=== PATIENT | male | born 1950 | race Caucasian/White ===

== ENCOUNTER → 2017-03-17 | Day surgery (SDC) | payer BC, MEDICARE ==
[~2017-03-17] VITALS: Ht 193 cm; Wt 95.3 kg
[~2017-03-17] MED LIST: ALBU2.5V5 NEB; BACITRACIN 50,000 UNIT in IV NORMAL SALINE 1000ML BAG 1,000 ML IRR ONE; BUPIVACAINE-EPI 0.5%-1:200000 50 ML VIAL. ONE; BUPR1FIL5 SL; CELE200C PO; CYCL10TA2 PO; FLUT1DIS5 IH; GELATIN SPONGE SIZE 100. ONE; GUAI600T47 PO; HYDROmorphone 2 MG/ML VIAL IV PRN; IV RINGERS,LACTATED 1000ML 1,000 ML IV SCH; LIDOCAINE 1% 1 ML SYRINGE. ID PRN; LORA10TA68 PO; MORPHINE SULFATE 2 MG/ML DISP.SYRIN. IV PRN; OMEP20TA63 PO; ONDANSETRON PF 4 MG/2 ML VIAL. IV PRN; PRED2.5T PO; PREG200C PO; PROCHLORPERAZINE 10 MG/2 ML VIAL. IV PRN; THROMBIN TOPICAL 20,000 UNIT SPRAY.SYRN KIT TP ONE; TIOT18CA IH; VENTOLIN HFA18 GM INH; fentaNYL PF VIAL 100 MCG/2 ML VIAL IV PRN
[2017-03-17 07:21] VITALS: BP 116/76
[2017-03-17 07:30] LABS: HCO3 ABG 29 mmol/L (21-28); PCO2 ABG 43 mmHg (35-46); PH ABG 7.45 (7.35-7.45); PO2 ABG 64 mmHg (65-108); SAT O2 ABG 93 % (92-99)
[2017-03-17 07:32] LABS: FIO2 ABG 21
--- NOTE | 2017-03-17 07:52 | EKG ---
[facility] [address] [place] [address] Test Date: 2017-03-17 Test Time: 07:54:46 Pat Name: CARROLL SCHMITT Department: Room: Gender: M Morning Babysitter: : 1950 Requested By: WYATT LOVELACE Order Number: [id number] Reading MD: Measurements Intervals [place] Rate: 81 P: 90 RI: 172 QRS: 68 QRSD: 92 T: 50 QT: 370 QTc: 435 Interpretive Statements SINUS RHYTHM NO SPECIFIC ECG ABNORMALITIES RI6.01 No previous ECG available for comparison
[2017-03-17 08:00] LABS: BASO # 0.1 x10^3/uL (0.0-0.2); BASO % 1 % (0-3); EOS % 1 % (0-3); HEMATOCRIT 40.3 % (39.0-53.0); HEMOGLOBIN 13.3 g/dL (13.0-17.5); LYMPH # 1.4 x10^3/uL (1.0-4.8); LYMPH % 10 % (24-48); MEAN CORPUSCULAR HEMOGLOBIN 30 pg (25-35); MEAN CORPUSCULAR HGB CONC 33 g/dL (31-37); MEAN CORPUSCULAR VOLUME 90 fL (79-100); MONO % 6 % (0-9); NEUT % 83 % (31-73); PLATELET COUNT 248 x10^3/uL (140-400); RED BLOOD COUNT 4.48 x10^6/uL (4.30-5.70); RED CELL DISTRIBUTION WIDTH 14.4 % (11.5-14.5); WHITE BLOOD COUNT 14.6 x10^3/uL (4.0-11.0)
[2017-03-17 08:07] LABS: CALCIUM 7.8 mg/dL (8.5-10.1); CREATININE 0.9 mg/dL (0.7-1.3); GFR 84.7; POTASSIUM 3.5 mmol/L (3.5-5.1)
[2017-03-17 08:49] LABS: ALBUMIN 3.2 g/dL (3.4-5.0); ALBUMIN/GLOBULIN RATIO 0.9 (1.0-1.7); TOTAL BILIRUBIN 0.7 mg/dL (0.2-1.0); TOTAL PROTEIN 6.7 g/dL (6.4-8.2)
--- NOTE | 2017-03-17 08:53 | RAD ---
INDICATION: SOA, PRE-OP C5-6 FUSION COMPARISON: None. FINDINGS: 2 frontal views of chest obtained. Hyperexpanded lungs. No focal airspace consolidation. Mediastinal contour is unremarkable. No gross osseous destructive lesion. IMPRESSION: Hyperexpanded lungs. Could be from strong inspiratory effort but would correlate with symptoms to ensure that this is not from chronic lung disease with air-trapping such as emphysema.
--- NOTE | 2017-03-19 22:04 | RESP ---
DATE OF SERVICE: 03/17/2017 The patient underwent spirometry dated 03/17/2017. FEV1 to FVC ratio was 44%, FEV1 was 970 mL at 23% of predicted, FVC was 2.44 liters or 43% of predicted. IMPRESSION: Severe air flow limitation. THOMAS WASHINGTON MD DR: LACHELLE/geoffrey JOB#: [id number] / [id number] WYATT Schulte MD
== END | disposition home or self-care (01) ==
LOC: SURG 06:33
PROVIDERS: ATTEND Neurological Surgery
DX: J43.9 Emphysema, unspecified (principal); M47.812 Spondylosis without myelopathy or radiculopathy, cervical region; J44.9 Chronic obstructive pulmonary disease, unspecified; K21.9 Gastro-esophageal reflux disease without esophagitis; M19.90 Unspecified osteoarthritis, unspecified site; F17.200 Nicotine dependence, unspecified, uncomplicated; Z98.890 Other specified postprocedural states; Z86.69 Personal history of other diseases of the nervous system and sense organs; Z72.0 Tobacco use; Z90.49 Acquired absence of other specified parts of digestive tract; Z88.6 Allergy status to analgesic agent; Z88.1 Allergy status to other antibiotic agents
CPT/HCPCS: 36415; 36600; 71010; 80053; 82805; 85027; 93005; 94010; J3490; J7030

== ENCOUNTER 2017-04-07 07:05 | Observation (INO) | payer BC, MEDICARE ==
[2017-04-06 23:00] VITALS: BP 107/63
[2017-04-07] VITALS (10 sets, daily range): BP systolic 100–125; BP diastolic 52–77
[~2017-04-07] VITALS: Ht 193 cm; Wt 95.3 kg
[~2017-04-07 07:05] MED LIST changes: -BUPIVACAINE-EPI 0.5%-1:200000 50 ML VIAL. ONE; -GELATIN SPONGE SIZE 100. ONE; -HYDROmorphone 2 MG/ML VIAL IV PRN; -MORPHINE SULFATE 2 MG/ML DISP.SYRIN. IV PRN; -THROMBIN TOPICAL 20,000 UNIT SPRAY.SYRN KIT TP ONE
[2017-04-07] MEDS ORDERED: ALPR0.5T PO (07:32)
[2017-04-07] MEDS ORDERED: OXYM40TA17 PO (07:32)
[2017-04-07] MEDS ORDERED: GELATIN SPONGE SIZE 100. ONE (07:33)
[2017-04-07] MEDS ORDERED: BUPIVAC MPF-EPI 0.5%-1:200000 30 ML VIAL. ONE (07:33)
[2017-04-07] MEDS ORDERED: THROMBIN TOPICAL 20,000 UNIT SPRAY.SYRN KIT TP ONE (07:33)
[2017-04-07 07:48] LABS: BASO # 0.1 x10^3/uL (0.0-0.2); BASO % 1 % (0-3); EOS % 1 % (0-3); HEMATOCRIT 41.8 % (39.0-53.0); HEMOGLOBIN 13.8 g/dL (13.0-17.5); LYMPH # 1.7 x10^3/uL (1.0-4.8); LYMPH % 14 % (24-48); MEAN CORPUSCULAR HEMOGLOBIN 30 pg (25-35); MEAN CORPUSCULAR HGB CONC 33 g/dL (31-37); MEAN CORPUSCULAR VOLUME 91 fL (79-100); MONO % 6 % (0-9); NEUT % 77 % (31-73); PLATELET COUNT 272 x10^3/uL (140-400); RED BLOOD COUNT 4.59 x10^6/uL (4.30-5.70); RED CELL DISTRIBUTION WIDTH 14.6 % (11.5-14.5); WHITE BLOOD COUNT 12.3 x10^3/uL (4.0-11.0)
[2017-04-07] MEDS ORDERED: LIDOCAINE 2% PF Vial for OR 5 ML VIAL. ONE (08:10)
[2017-04-07] MEDS ORDERED: DEXAMETHASONE SOD PHOS 20 MG/5 ML VIAL. ONE (08:10)
[2017-04-07] MEDS ORDERED: ONDANSETRON PF 4 MG/2 ML VIAL. ONE (08:10)
[2017-04-07] MEDS ORDERED: PROPOFOL 20 ML IV ONE (08:10)
[2017-04-07] MEDS ORDERED: fentaNYL PF VIAL 100 MCG/2 ML VIAL ONE ×2 (08:11→11:27)
[2017-04-07] MEDS ORDERED: PROPOFOL 50 ML IV ONE ×2 (08:12→09:44)
[2017-04-07] MEDS ORDERED: REMIFENTANIL 2 MG VIAL. IV ONE (08:12)
[2017-04-07] MEDS ORDERED: GLYCOPYRROLATE 1 MG/5 ML VIAL. ONE (09:24)
[2017-04-07] MEDS ORDERED: SEVOFLURANE > 120 MINUTES. IH ONE (09:25)
[2017-04-07] MEDS ORDERED: NEOSTIGMINE 10 MG/10 ML VIAL. ONE ×2 (10:36→10:38)
--- NOTE | 2017-04-07 11:34 | PDOC ---
BRIEF OPERATIVE NOTE Date: Apr 07, 2017 Pre-Op Diagnosis cervical stenosis, cervical radiculopathy, cervical spondylosis Post-Op Diagnosis same Procedure Performed ACDF 5-6 Surgeon Stevie Engineer Rf Deployment none Anesthesia Type: General Blood Loss 20mL Specimens Obtained disk and decompression Findings prominent stenosis C5-6 due to disk/osteophyte complex, neuromonitoring remained at least baseline throughout the procedure Complications none apparent WYATT LOVELACE MD Apr 07, 2017 11:34
[2017-04-07] MEDS ORDERED: MAGNESIUM HYDROXIDE 2,400 MG/30 ML ORAL.SUSP. PO PRN (11:45)
[2017-04-07] MEDS ORDERED: CALCIUM CARBONATE 500 MG TAB.CHEW PO PRN (11:45)
[2017-04-07] MEDS ORDERED: ALPRAZolam 0.5 MG TABLET PO PRN (11:45)
[2017-04-07] MEDS ORDERED: diphenhydrAMINE 50 MG/ML VIAL IV PRN (11:45)
[2017-04-07] MEDS ORDERED: diphenhydrAMINE HCL 25 MG CAPSULE PO PRN (11:45)
[2017-04-07] MEDS ORDERED: fentaNYL PF VIAL 100 MCG/2 ML VIAL IV PRN ×2 (11:45)
[2017-04-07] MEDS ORDERED: ACETAMINOPHEN 325 MG TABLET. PO PRN (11:45)
[2017-04-07] MEDS ORDERED: MAG HYDROX/ALUMINUM HYD/SIMETH 30 ML ORAL.SUSP PO PRN (11:45)
[2017-04-07] MEDS ORDERED: 0.9 % SODIUM CHLORIDE 10 ML DISP.SYRIN. IV PRN (11:45)
[2017-04-07] MEDS ORDERED: oxyCODONE/APAP 5/325 1 TAB TABLET PO PRN (11:45)
[2017-04-07] MEDS ORDERED: ZOLPIDEM 5 MG TABLET. PO PRN (11:45)
[2017-04-07] MEDS ORDERED: NALOXONE 0.4 MG/ML VIAL. IV PRN (11:45)
[2017-04-07] MEDS ORDERED: ONDANSETRON PF 4 MG/2 ML VIAL. IV PRN (11:45)
[2017-04-07] MEDS ORDERED: ALBUTEROL SULFATE 2.5 MG/3 ML NEBU. NEB PRN ×2 (12:00→18:45)
[2017-04-07] MEDS: BUPRENORPHINE HCL SL SCH ×3 (13:00→21:00)
[2017-04-07] MEDS: NALOXONE HCL SL SCH ×3 (13:00→21:00)
[2017-04-07] MEDS ORDERED: NON FORMULARY ITEM (Albuterol Sulfate (Ventolin Hfa Inhaler) 2 PUFF) INH SCH (13:00)
--- NOTE | 2017-04-07 14:14 | OP ---
DATE OF SURGERY: 04/07/2017 SURGEON: Wyatt Lovelace M.D. SUGARCANE PLANTER: None. PREOPERATIVE DIAGNOSES: Cervical stenosis with cervical radiculopathy and cervical spondylosis. POSTOPERATIVE DIAGNOSES: Cervical stenosis with cervical radiculopathy and cervical spondylosis. PROCEDURE: Anterior cervical diskectomy and instrumented fusion of cervical 5-6 with structural allograft fusion substrate, use of Amendia instrumentation with intraoperative neuromonitoring. ANESTHESIA: General. COMPLICATIONS: None intraprocedurally. INDICATIONS FOR THE PROCEDURE: The patient is a 66-year-old gentleman with pain in the bilateral upper extremities, has been refractory to multiple nonsurgical treatments who has prominent stenosis at cervical 5-6 secondary to degenerative changes. Please refer to the patient chart for additional details. DESCRIPTION OF PROCEDURE: After informed consent was obtained, the patient was brought into the operating room, was placed under general anesthesia. He was placed in the supine position with a shoulder bump placed under the shoulders with head placed in very slight extension. Neuromonitoring baseline potentials were obtained and all pressure points were checked and padded appropriately. The anterior neck was prepped and draped in the usual sterile fashion, was utilized to localize an appropriate incision location and a horizontal incision centered over the region of cervical 5-6 was made with a 10 blade scalpel centered just left of midline. Blunt dissection techniques were utilized to dissect the underlying soft tissues. The platysma was sharply divided in the plane of the incision. Blunt dissection techniques were then used to develop a plane between the carotid sheath laterally and the trachea and esophagus medially to approach the anterior cervical spine. The prevertebral fascia was taken down with a Kittner. The longus colli muscles were utilized as protective barrier and self-retainers, which were instituted. Level was verified with fluoroscopy prior to the initiation of diskectomy. Traction pins were instituted in cervical 5 and cervical 6 and some distraction was applied. Annulotomy was performed at cervical 5-6 with an 11 blade scalpel and disk material removed with a curette as well as a pituitary rongeur. The anterior inferior osteophyte of cervical 5 was taken down with a Kerrison rongeur. Once diskectomy was complete, the posterior osteophytes were taken down with a Kerrison rongeur and the posterior longitudinal ligament was divided with Kerrison rongeur. Additional disk material was teased posteriorly into the disk space and removed with pituitary rongeur. Upon completion of diskectomy and decompression, the neural elements were noted to be very well decompressed. This was verified with direct visualization as well as gentle palpation with a blunt nerve hook. Neuromonitoring potentials continued to remain at good baseline. Trials were instituted to verify an appropriate graft size and a 7-mm structural allograft was instituted into the disk space at cervical 5-6. Once this was in good position, the distraction was removed and the distraction pins were removed. Hemostasis was achieved. The traction pin sites with bone wax as well as some use of bipolar electrocautery and an Amendia 14-mm anterior cervical plate was instituted across the disk space of cervical 5-6 with 4 screws instituted, 2 at cervical 5 and 2 at cervical 6, plate was secured in good position with good purchase of the screws and attached over the anterior disk space. The screws were secured and tightened and locked according to the waitstaff captain specification. Upon completion of this, pristine hemostasis was achieved with FloSeal irrigation and some minimal use of bipolar electrocautery and thrombin. Fluoroscopy was utilized to verify the appropriate position of the construct. Once this was noted to be adequate, attention was turned to closure, the wound was generously irrigated with antibiotic irrigation prior to the final closure. The platysma was reapproximated with Vicryl suture in a simple interrupted fashion. The subcutaneous tissues were reapproximated with Vicryl suture in an interrupted inverted fashion. Skin was reapproximated with 4-0 Vicryl in a running subcuticular fashion. Mastisol and Steri-Strips were applied and the wound was dressed with Telfa and Tegaderm. At the end of the procedure, all needle and sponge counts were correct x 2. Neuromonitoring remained at least at baseline throughout the duration of the entire procedure and there were no intraprocedural complications apparent. The patient was extubated in the operating room and taken to recovery in stable condition. WYATT LOVELACE MD DR: ANNA MARIE/geoffrey JOB#: [id number] / [id number]
[2017-04-07] MEDS: PREGABALIN 50 MG CAPSULE PO SCH ×2 (14:23→21:07)
[2017-04-07] MEDS: METHOCARBAMOL 750 MG TABLET PO SCH ×2 (14:23→21:06)
[2017-04-07] MEDS ORDERED: ALBUTEROL SULFATE 2.5 MG/3 ML NEBU. NEB SCH (16:00)
--- NOTE | 2017-04-07 16:36 | PDOC ---
Provider Note Provider Note dictated RABIA HOROWITZ MD Apr 07, 2017 16:36
[2017-04-07] MEDS: CALCIUM CARB/VIT D3 500/200 TABLET. PO SCH (16:46)
[2017-04-07] MEDS: FERROUS SULFATE 325 MG TABLET. PO SCH (16:46)
--- NOTE | 2017-04-07 17:45 | CONS ---
DATE OF CONSULTATION: 04/07/2017 ATTENDING PHYSICIAN: Dr. Santana Hubbard. REASON FOR CONSULTATION: Chronic obstructive pulmonary disease. HISTORY OF PRESENT ILLNESS: The patient is a 66-year-old male who has history of severe COPD with the last FEV1 of 1.02 postbronchodilator, as reported to me by his . He also has chronic steroid dependence and has been on prednisone 10 mg daily for past 1 year. The patient uses oxygen at night time. He was hospitalized for elective anterior cervical diskectomy and instrumented fusion of cervical 5-6. He did well postoperatively and had no difficulty in coming off the ventilator. The patient is currently on 2 liters of oxygen in no obvious respiratory distress. Last chest x-ray was from February, which showed hyperinflated lungs consistent with COPD. No cough, no chest pains. He has chronic mild exertional dyspnea. No headaches. No nausea, vomiting, or diarrhea. PAST MEDICAL HISTORY: Significant for severe oxygen and steroid dependent COPD. He uses oxygen at night time and prednisone 10 mg daily; last FEV1 of 1.02 postbronchodilators. History of recurrent bladder cancer, status post treatment with BCG. PAST SURGICAL HISTORY: Including cholecystectomy and lumbar fusion in 2009. ALLERGIES: CODEINE AND LEVOFLOXACIN. REVIEW OF SYSTEMS: Twelve-point system obtained. Pertinent positives discussed in my history of present illness, otherwise noncontributory. All systems that were negative were reviewed as well. MEDICATIONS: All reviewed as listed in the MRAD. FAMILY HISTORY: Noncontributory to lungs. PHYSICAL EXAMINATION: VITAL SIGNS: Reviewed. Pulse ox 91% on 2 liters. HEENT: Sclerae nonicteric. NECK: With an anterior sterile dressing. LUNGS: With an occasional faint wheeze at end expiration. CARDIOVASCULAR: Regular rate and rhythm. ABDOMEN: Soft, obese. EXTREMITIES: No pitting edema. LABORATORY DATA: Reviewed. White cell count 12.3, hemoglobin 13.8, platelets are 272. IMPRESSION: 1. Severe steroid-dependent chronic obstructive airway disease, clinically compensated. His last FEV1 was 1.02 post-bronchodilator. Chest x-ray from a month ago was consistent with chronic obstructive pulmonary disease. 2. Status post anterior cervical diskectomy and instrumented fusion of the cervical 5-6 with structural allograft fusion. Did well postoperatively and was successfully weaned off the ventilator. 3. Mild post-op hypoxia related to anesthetic agents, only needing 2 litres of oxygen. RECOMMENDATIONS: 1. Continue with present oxygen with slow wean and eventually room air. 2. Minimize the use of narcotics. Watch for any respiratory depression. 3. We will change his albuterol to DuoNeb. He takes Spiriva and Advair at home. Currently, he is on Pulmicort nebulizer. 4. Incentive spirometry. 5. Ambulation per Neurosurgery. 6. Discussed with the patient's and will follow along with you. RABIA HOROWITZ MD DR: ANTHONY/geoffrey JOB#: [id number] / [id number] DYLON
[2017-04-07] MEDS: IPRATRPIUM/ALBUTEROL 0.5/2.5MG 3 ML NEBU. NEB SCH (18:31)
[2017-04-07] MEDS: BUDESONIDE 0.5 MG/2 ML NEBU. NEB SCH (18:32)
[2017-04-07] MEDS: oxyCODONE/APAP 5/325 1 TAB TABLET PO PRN (19:51)
[2017-04-07] MEDS ORDERED: NON FORMULARY ITEM (Fluticasone/Salmeterol (Advair 500-50 Diskus) 1 INH) IH SCH (21:00)
[2017-04-07] MEDS: SENNOSIDES/DOCUSATE 8.6/50MG TABLET. PO SCH (21:00)
[2017-04-07] MEDS: oxyCODONE ER 40 MG TAB.ER.12H PO SCH (21:06)
[2017-04-07] MEDS: DOCUSATE SODIUM 100 MG CAPSULE. PO SCH (21:06)
[2017-04-08] MEDS: oxyCODONE/APAP 5/325 1 TAB TABLET PO PRN ×2 (00:59→05:33)
[2017-04-08] MEDS: BUDESONIDE 0.5 MG/2 ML NEBU. NEB SCH (05:43)
[2017-04-08] MEDS: IPRATRPIUM/ALBUTEROL 0.5/2.5MG 3 ML NEBU. NEB SCH ×2 (05:43→10:30)
[2017-04-08 06:31] VITALS: BP 132/70
[2017-04-08] MEDS ORDERED: PANTOPRAZOLE 40 MG TABLET.DR. PO SCH (07:30)
[2017-04-08] MEDS: METHOCARBAMOL 750 MG TABLET PO SCH (08:18)
[2017-04-08] MEDS: PREGABALIN 50 MG CAPSULE PO SCH (08:18)
[2017-04-08] MEDS: oxyCODONE ER 40 MG TAB.ER.12H PO SCH (08:19)
[2017-04-08] MEDS: FERROUS SULFATE 325 MG TABLET. PO SCH (08:19)
[2017-04-08] MEDS: SENNOSIDES/DOCUSATE 8.6/50MG TABLET. PO SCH (08:19)
[2017-04-08] MEDS: DOCUSATE SODIUM 100 MG CAPSULE. PO SCH (08:19)
[2017-04-08] MEDS: CALCIUM CARB/VIT D3 500/200 TABLET. PO SCH (08:19)
[2017-04-08] MEDS: NALOXONE HCL SL SCH (09:00)
[2017-04-08] MEDS ORDERED: NON FORMULARY ITEM (Tiotropium Bromide (Spiriva) 1 CAP) IH SCH (09:00)
[2017-04-08] MEDS: BUPRENORPHINE HCL SL SCH (09:00)
[2017-04-08] MEDS ORDERED: predniSONE 10 MG TABLET PO SCH (09:00)
[2017-04-08] MEDS ORDERED: MULTIVITAMIN with MINERAL TABLET. PO SCH (09:00)
--- NOTE | 2017-04-08 10:38 | PDOC ---
PULMONARY PROGRESS NOTES Subjective no soa Vitals Vital Signs Date Time Temp Pulse Resp B/P (MAP) Pulse Ox O2 Delivery O2 Flow Rate FiO2 04/08/17 10:30 97 Nasal Cannula 2.0 04/08/17 06:31 98.1 86 20 132/70 (90) 98.1 General: Alert, No acute distress Lungs: Wheezing (very mild wheezes) Cardiovascular: S1 Abdomen: Soft Neuro Exam: Alert Extremities: No Edema Labs Laboratory Tests Test 04/07/17 07:40 White Blood Count 12.3 x10^3/uL (4.0-11.0) Red Blood Count 4.59 x10^6/uL (4.30-5.70) Hemoglobin 13.8 g/dL (13.0-17.5) Hematocrit 41.8 % (39.0-53.0) Mean Corpuscular Volume 91 fL (79-100) Mean Corpuscular Hemoglobin 30 pg (25-35) Mean Corpuscular Hemoglobin Concent 33 g/dL (31-37) Red Cell Distribution Width 14.6 % (11.5-14.5) Platelet Count 272 x10^3/uL (140-400) Neutrophils (%) (Auto) 77 % (31-73) Lymphocytes (%) (Auto) 14 % (24-48) Monocytes (%) (Auto) 6 % (0-9) Eosinophils (%) (Auto) 1 % (0-3) Basophils (%) (Auto) 1 % (0-3) Neutrophils # (Auto) 9.5 x10^3uL (1.8-7.7) Lymphocytes # (Auto) 1.7 x10^3/uL (1.0-4.8) Monocytes # (Auto) 0.8 x10^3/uL (0.0-1.1) Eosinophils # (Auto) 0.2 x10^3/uL (0.0-0.7) Basophils # (Auto) 0.1 x10^3/uL (0.0-0.2) Medications Active Scripts Medications Dose Route/Sig Max Daily Dose Days Date Category Xanax (Alprazolam) 0.5 Mg Tablet 1 Tab PO DAILY PRN 04/07/17 Reported Opana Er (Oxymorphone Hcl) 40 Mg Tab.er.12h 0 PO BID 04/07/17 Reported Claritin (Loratadine) 10 Mg Tablet 10 Mg PO 03/06/17 Reported Suboxone 8 Mg-2 Mg Sl Film (Buprenorphine Hcl/Naloxone Hcl) 1 Each Film 1 Each SL QID 03/06/17 Reported Advair 500-50 Diskus (Fluticasone/Salmeterol) 1 Each Disk.w.dev 1 Inh IH BID 03/06/17 Reported Mucinex (Guaifenesin) 600 Mg Tablet.er 1 Tab PO BID 03/06/17 Reported Cyclobenzaprine Hcl 10 Mg Tablet 10 Mg PO HS 03/06/17 Reported Lyrica (Pregabalin) 200 Mg Capsule 1 Cap PO TID 03/06/17 Reported Celebrex (Celecoxib) 200 Mg Capsule 1 Cap PO DAILY 03/06/17 Reported Prilosec Otc (Omeprazole Magnesium) 20 Mg Tablet.dr 1 Tab PO DAILY 03/06/17 Reported Prednisone 2.5 Mg Tablet 10 Mg PO DAILY 03/06/17 Reported Ventolin Hfa Inhaler (Albuterol Sulfate) 18 Gm Hfa.aer.ad 2 Puff INH QID 03/06/17 Reported Spiriva (Tiotropium [place]) 18 Mcg Cap.w.dev 1 Cap IH DAILY 03/06/17 Reported Albuterol Sulfate Neb Soln (Albuterol Sulfate) 2.5 Mg/3 Ml Vial.neb 2.5 Mg NEB QID 03/06/17 Reported Impression . 1. Severe steroid-dependent chronic obstructive airway disease, clinically compensated. His last FEV1 was 1.02 post-bronchodilator. Chest x-ray from a month ago was consistent with chronic obstructive pulmonary disease. 2. Status post anterior cervical diskectomy and instrumented fusion of the cervical 5-6 with structural allograft fusion. Did well postoperatively and was successfully weaned off the ventilator. 3. Mild post-op hypoxia related to anesthetic agents, only needing 2 litres of oxygen. Plan . 1. wean off oxygen 2. Minimize the use of narcotics. 3. Nebs 4. Incentive spirometry. 5. Ambulation per Neurosurgery. 6. Discussed with the patient's . can go home today RABIA HOROWITZ MD Apr 08, 2017 10:38
--- NOTE | 2017-04-08 11:40 | PDOC ---
SUBJECTIVE Subjective Denies acute complaints this AM. Doing well from pulmonary standpoint. Reports significant improvement of upper extremity pain and numbness that is essentially resolved. Reports taking po without problem. Has worked with physical therapy and has been cleared to d/c. OBJECTIVE Vital Signs Vital Signs Date Time Temp Pulse Resp B/P (MAP) Pulse Ox O2 Delivery O2 Flow Rate FiO2 04/08/17 10:30 97 Nasal Cannula 2.0 04/08/17 07:50 Nasal Cannula 2.0 04/08/17 06:31 98.1 86 20 132/70 (90) 89 Room Air 98.1 04/08/17 05:45 93 Nasal Cannula 2.0 04/08/17 05:43 93 Nasal Cannula 2.0 04/08/17 05:33 24 90 Room Air 04/08/17 03:00 20 04/08/17 00:59 20 04/07/17 23:00 97.9 70 16 107/63 (78) 91 Nasal Cannula 2.0 97.9 04/07/17 21:25 95 Nasal Cannula 2.0 04/07/17 21:06 20 Nasal Cannula 2.0 04/07/17 20:00 Nasal Cannula 2.0 04/07/17 19:51 20 Nasal Cannula 2.0 04/07/17 18:34 Nasal Cannula 2.0 04/07/17 18:33 Nasal Cannula 2.0 04/07/17 18:29 97.8 63 16 125/69 (87) 92 Nasal Cannula 3.0 97.8 04/07/17 17:00 62 16 100/52 (68) Nasal Cannula 3.0 04/07/17 16:00 70 16 113/61 (78) Nasal Cannula 3.0 04/07/17 15:30 75 16 110/76 (87) 94 Nasal Cannula 3.0 04/07/17 15:15 91 Nasal Cannula 2.0 04/07/17 14:57 67 110/77 (88) 04/07/17 14:43 67 110/65 (80) 91 Nasal Cannula 3.0 04/07/17 14:05 68 114/68 (83) 3.0 04/07/17 13:35 69 115/72 (86) Nasal Cannula 3.0 04/07/17 13:24 Nasal Cannula 3.0 04/07/17 13:05 97.4 71 18 109/67 (81) 90 Nasal Cannula 3.0 97.4 04/07/17 12:45 97 68 18 104/63 93 Nasal Cannula 3 97.0 04/07/17 12:30 99.4 67 18 116/67 92 Nasal Cannula 3 99.4 04/07/17 12:15 99.4 70 18 121/67 99 Simple Mask 10 99.4 04/07/17 12:00 Nasal Cannula 3 04/07/17 12:00 99.4 75 18 110/74 99 Simple Mask 10 99.4 04/07/17 11:45 99.4 77 16 121/62 99 Room Air 10 99.4 04/07/17 11:45 Mask 10 I & O Intake and Output 04/08/17 07:00 Intake Total 950 ml Output Total 145 ml Balance 805 ml Intake Oral 950 ml Output Urine Total 125 ml Estimated Blood Loss 20 ml # Voids 10 PHYSICAL EXAM Physical Exam AAOx4, NAD, speech fluent, some hoarseness with phonation, NGUYEN 5/5, sensation intact LT, anterior neck dressing c/d/i, flat ASSESSMENT/PLAN Assessment/Plan POD 1 ACDF -recovering well thus far -has been cleared for d/c from pulmonary standpoint, appreciate consultation -d/c home today with standard post-op restrictions and f/u [address] Lovelace, [place] [phone] Problems: WYATT LOVELACE MD Apr 08, 2017 11:40
[2017-04-08 11:42] VITALS: BP 123/69
[2017-04-08] MEDS ORDERED: METH-38 PO (11:50)
[2017-04-08] MEDS ORDERED: SENN1TAB7 PO (11:51)
--- NOTE | 2017-04-08 12:42 | PATHOLOGY ---
PATHOLOGY REPORT * * * * * * * * FINAL DIAGNOSIS: Segments of fibrocartilaginous tissue and bone, cervical disc: - Degenerative changes of fibrocartilaginous tissue. COMMENT: There is no evidence of an acute inflammatory process or malignancy. (PHILIPP:hilaria; 04/08/2017) REPORT ELECTRONICALLY SIGNED BY: Mau Cancino M.D. DATE/TIME: 04/08/2017 12:41 * * * * * * * * GROSS PATHOLOGY: Received in formalin labeled "Norris Schmitt cervical disc" are multiple segments of watson, rubbery, and gritty tissue admixed with bone. The specimen measures 2.9 x 2.7 x 0.6 cm in aggregate dimensions. The tissue is submitted entirely in cassette A1, following decalcification. ([facility]; 04/07/17) INITIAL CPT CODE(S): A; 45232, 31133 Professional services performed [place] [facility] [place] [address] Technical services performed by [facility] at [address] [place] [address], [facility] [address], [place] [address]. SPECIMEN(S) RECEIVED: A.Cervical disc CLINICAL HISTORY: Cervical stenosis, radiculopathy PATIENT: NORRIS SCHMITT /AGE: 12 1950 (Age: 66) PATIENT #: [id number] ALT CASE #: SPECIMEN COLLECTION DATE: 04/07/2017 SPECIMEN RECEIVED DATE: 04/07/2017 [facility] - [address] [place] [address] - PHONE: [phone] * * * END OF REPORT * * *
== END 2017-04-08 12:30 | disposition home or self-care (01) ==
LOC: SURG 07:05 → 4 SOUTHEST 12:08
PROVIDERS: ADMIT Neurological Surgery; ATTEND Neurological Surgery
DX: M48.02 Spinal stenosis, cervical region (principal); M47.22 Other spondylosis with radiculopathy, cervical region; J44.9 Chronic obstructive pulmonary disease, unspecified; M25.78 Osteophyte, vertebrae; J95.89 Other postprocedural complications and disorders of respiratory system, not elsewhere classified; Z79.52 Long term (current) use of systemic steroids; Z85.51 Personal history of malignant neoplasm of bladder; Z98.1 Arthrodesis status; Z99.81 Dependence on supplemental oxygen
CPT/HCPCS: 20931; 22551; 22845; 36415; 76000; 85027; 94250; 94640; 94760; 97162; 97165; 97530; C1713; G0378; G0379; G8978; G8979; G8980; J0690; J1100; J2001; J2405; J2704; J2710; J3010; J3490; J7030; J7512; J7613; J7620; J7626; 88304; 88311